=== PATIENT | female | born 1995 | race African-American/Black ===

== ENCOUNTER 2017-05-09 03:08 | Emergency (ER) | payer OTHER ==
[~2017-05-09] VITALS: Ht 167.6 cm; Wt 72.6 kg
[~2017-05-09 03:08] MED LIST: ACCUNEB SO1.25 MG/1 INH; ACCUNEB1.25 MG/3 IH; ALBUTEROL INH; DEPO; HYDROCODONE-ACE15 ML PO; PREDNISONE50 MG PO; PROAIR HFA8.5 GM IH; SINGULAIR
[2017-05-09] MEDS ORDERED: ALBUTEROL2.5 MG/31 INH (03:43)
[2017-05-09] MEDS ORDERED: PREDNISONE 20 M20 MG PO (03:43)
[2017-05-09] MEDS ORDERED: VENTOLIN HFA 1818 GM INH (03:43)
[2017-05-09 04:10] VITALS: BP 118/71
== END 2017-05-09 04:10 | disposition home or self-care (01) ==
LOC: ER 03:08
DX: J45.901 Unspecified asthma with (acute) exacerbation (principal); J06.9 Acute upper respiratory infection, unspecified; F12.10 Cannabis abuse, uncomplicated